=== PATIENT | female | born 1945 | race Caucasian/White ===

== ENCOUNTER → 2022-03-24 | Outpatient (CLI) | payer MEDICARE ==
--- NOTE | 2022-03-24 11:55 | MR ---
EXAMINATION TYPE: MR brain wo con DATE OF EXAM: 03/24/2022 COMPARISON: NONE HISTORY: CVA, change in mental status, memory issues. TECHNIQUE: T1-weighted sagittal, T2, FLAIR, and diffusion axial, and T2 coronal coronal views of the brain are submitted. FINDINGS: There is no evidence of acute ischemia. Moderate generalized degenerative change of the greater front al lobe component. There is a numerous focal areas of abnormal signal scattered throughout the white matter in a nonspecific pattern. There is no mass effect. Craniocervical junction maintained. Sella turcica has a normal appearance. No cerebellopontine angle mass. Changes of chronic sinusitis. IMPRESSION: 1. No acute intracranial process. 2. 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
== END | disposition home or self-care (01) ==
LOC: RADMRIMAIN 10:15
PROVIDERS: ATTEND Psychiatry & Neurology Neurology
DX: I67.9 Cerebrovascular disease, unspecified (principal)
CPT/HCPCS: 70551